=== PATIENT | male | born 1990 | race Caucasian/White ===

== ENCOUNTER 2017-07-04 18:28 | Emergency (ER) | payer BC ==
[2017-07-04 19:45] VITALS: BP 126/79
--- NOTE | 2017-07-04 20:17 | ED ---
GI/ HPI - HPI Summary HPI Summary: 26 yr old male with dysuria, frequency, hesitancy of urination. Onset of symptoms over the past three days. No other complaints. - History of Current Complaint Chief Complaint: UCGU Time Seen by Provider: 07/04/17 19:47 Stated Complaint: URINARY Pain Intensity: 0 - Allergy/Home Medications Allergies/Adverse Reactions: Allergies Allergy/AdvReac Type Severity Reaction Status Date / Time No Known Allergies Allergy Verified 07/04/17 19:42 PMH/Surg Hx/FS Hx/Imm Hx Infectious Disease History: No Infectious Disease History: Denies: Traveled Outside the [place] in Last 30 Days - Family History Known Family History: Positive: None - Social History Lives: With Family - girlfriend Alcohol Use: Rare Substance Use Type: Reports: None Smoking Status (MU): Never Smoked Tobacco Review of Systems Constitutional: Negative Positive: dysuria, frequency, flank pain, urgency All Other Systems Reviewed And Are Negative: Yes Physical Exam Triage Information Reviewed: Yes Vital Signs On Initial Exam: Initial Vitals Temp Pulse Resp BP Pulse Ox 98 F 76 14 126/79 100 07/04/17 19:40 07/04/17 19:40 07/04/17 19:40 07/04/17 19:40 07/04/17 19:40 Vital Signs Reviewed: Yes Appearance: Positive: Well-Appearing, No Pain Distress Skin: Positive: Warm, Skin Color Reflects Adequate Perfusion Head/Face: Positive: Normal Head/Face Inspection Eyes: Positive: EOMI ENT: Positive: Normal ENT inspection Neck: Positive: Nontender Respiratory/Lung Sounds: Positive: Clear to Auscultation, Breath Sounds Present Cardiovascular: Positive: RRR. Negative: Murmur Abdomen Description: Positive: Nontender, CVA Tenderness (R) Male Genital Exam: Positive: normal genitalia, no hernia. Negative: epididymal tenderness, hernia mass, inguinal tenderness, scrotum tenderness (R), scrotum tenderness (L), testicular tenderness (R), testicular tenderness (L), urethral discharge Musculoskeletal: Positive: Strength/ROM Intact Neurological: Positive: Sensory/Motor Intact, Alert, Oriented to Person Place, Time, CN Intact II-III Psychiatric: Positive: Normal Diagnostics - Vital Signs Vital Signs Temp Pulse Resp BP Pulse Ox 07/04/17 19:40 98 F 76 14 126/79 100 - Laboratory Lab Results: Lab Results 07/04/17 Range/Units 19:56 POC Urine Color Janel POC Urine Clarity Clear POC Urine pH 6.5 (5-9) POC Ur Specif [place] 1.020 (1.010-1.030) POC Urine Protein Negative (Negative) POC Ur Glucose (UA) Negative (Negative) POC Urine Ketones Negative (Negative) POC Urine Blood Negative (Negative) POC Urine Nitrite Positive A (Negative) POC Urine Bilirubin Negative (Negative) POC Urine Urobilinogen 2.0 A (Negative) POC U Leukocyte Esteras Negative (Negative) Lab Statement: Any lab studies that have been ordered have been reviewed, and results considered in the medical decision making process. GIGU Course/Dx - Course Course Of Treatment: 26 yr old male with UTI symptoms and CVA tenderness. Plan Rx Bactrim DS ten days. FU with physician referral. - Diagnoses Provider Diagnoses: UTI (urinary tract infection), Pyelonephritis Discharge - Discharge Plan Condition: Good Disposition: HOME Prescriptions: Sulfamethox/Trimethoprim DS* [Bactrim DS 800/160 TAB*] 1 tab PO BID #20 tab Patient Education Materials: Kidney Infection (ED), Urinary Tract Infection in Men (ED) Referrals: Non Staff,Doctor [Primary Care Provider] - [facility] [Outside]
== END 2017-07-04 20:34 | disposition home or self-care (01) ==
LOC: UCCORT 18:28
DX: N39.0 Urinary tract infection, site not specified (principal); N12 Tubulo-interstitial nephritis, not specified as acute or chronic
CPT/HCPCS: 81003; 87086; 87491; 87591; 99202; G0463

== ENCOUNTER 2017-07-23 17:41 | Emergency (ER) | payer BC ==
[2017-07-23 18:08] VITALS: BP 137/65
--- NOTE | 2017-07-23 18:44 | UC ---
Complaint Male HPI - HPI Summary HPI Summary: 26 yo male state the "head of his penis" feels irritated when he urinates this has been for > a month no back or abd pain no n/v/d - History of Current Complaint Chief Complaint: UCGU Stated Complaint: RE-CK URINARY COMPLAINT Time Seen by Provider: 07/23/17 18:13 Hx Obtained From: Patient Severity Initially: Mild Severity Currently: None Pain Intensity: 0 Pain Scale Used: 0-10 Numeric Location: Penis Aggravating Factor(s): Other Alleviating Factor(s): Other Associated Signs And Symptoms: Positive: Negative - Allergies/Home Medications Allergies/Adverse Reactions: Allergies Allergy/AdvReac Type Severity Reaction Status Date / Time No Known Allergies Allergy Verified 07/23/17 18:08 PMH/Surg Hx/FS Hx/Imm Hx Previously Healthy: Yes - Surgical History Surgical History: None - Family History Known Family History: Positive: None - Social History Alcohol Use: Rare Substance Use Type: None Smoking Status (MU): Never Smoked Tobacco Review of Systems Constitutional: Negative Skin: Negative Eyes: Negative ENT: Negative Respiratory: Negative Cardiovascular: Negative Gastrointestinal: Negative Genitourinary: Negative Motor: Negative Neurovascular: Negative Musculoskeletal: Negative Neurological: Negative Psychological: Negative Is Patient Immunocompromised?: No All Other Systems Reviewed And Are Negative: Yes Physical Exam Triage Information Reviewed: Yes Appearance: Well-Appearing, No Pain Distress, Well-Nourished Vital Signs: Initial Vital Signs Temp 98.4 F 07/23/17 17:59 Pulse 73 07/23/17 17:59 Resp 18 07/23/17 17:59 BP 137/65 07/23/17 17:59 Pulse Ox 100 07/23/17 17:59 Vital Signs Reviewed: Yes Eye Exam: Normal ENT Exam: Normal Dental Exam: Normal Neck: Positive: Supple, Nontender, No Lymphadenopathy Respiratory: Positive: Lungs clear, Normal breath sounds, No respiratory distress Cardiovascular Exam: Normal Cardiovascular: Positive: RRR Abdominal Exam: Normal Male Genital Exam: Positive: Normal Genitalia, Other - circ Musculoskeletal: Positive: ROM Intact, No Edema Neurological: Positive: Alert Psychological Exam: Normal Skin Exam: Normal Diagnostics - Laboratory Diagnostic Studies Completed/Ordered: urine analysis : normal Complaint Male Course/Dx - Differential Dx/Diagnosis Provider Diagnoses: penile irritation of uncertain cause Discharge - Sign-Out/Discharge Documenting (check all that apply): Discharge - Discharge Plan Condition: Stable Disposition: HOME Prescriptions: DOXYcycline CAP(*) [DOXYcycline 100MG CAP(*)] 100 mg PO BID #14 cap Patient Education Materials: Dysuria (ED) Referrals: Non Staff,Doctor [Primary Care Provider] - Additional Instructions: see urologist if not improved tests pending - Billing Disposition and Condition Condition: STABLE Disposition: HOME
== END 2017-07-23 18:43 | disposition home or self-care (01) ==
LOC: UCCORT 17:41
DX: N48.89 Other specified disorders of penis (principal)
CPT/HCPCS: 81003; 87491; 87591; 99212; G0463